=== PATIENT | male | born 1945 | race Caucasian/White ===

== ENCOUNTER 2018-02-20 13:54 | Emergency (ER) | payer OTHER ==
[~2018-02-20] VITALS: Ht 177.8 cm; Wt 76.2 kg
[2018-02-20] MEDS ORDERED: LIPITOR40 MG PO (14:04)
[2018-02-20] MEDS ORDERED: NORVASC5 MG PO (14:05)
[2018-02-20] MEDS ORDERED: DIOVAN80 MG PO (14:05)
[2018-02-20] MEDS ORDERED: ASPIR-LOW81 MG PO (14:06)
[2018-02-20] MEDS ORDERED: NORCO 5-325 TA1 EACH PO (14:38)
[2018-02-20] MEDS ORDERED: KEFLEX500 MG PO (14:38)
== END 2018-02-20 14:50 | disposition home or self-care (01) ==
LOC: ED 13:54
PROC: 0HQDXZZ Repair Right Lower Arm Skin, External Approach (ICD-10-PCS; principal; 2018-02-20)
DX: S51.011A Laceration without foreign body of right elbow, initial encounter (principal); Z79.899 Other long term (current) drug therapy; Z79.82 Long term (current) use of aspirin; W11.XXXA Fall on and from ladder, initial encounter
CPT/HCPCS: 12002; 99282